=== PATIENT | female | born 2000 | race Caucasian/White ===

== ENCOUNTER 2023-06-18 09:05 | Emergency (ER) | payer BC, SELFPAY ==
[2023-06-18 09:10] VITALS: BP 132/70; PULSE 72; RESP 16; TEMP 36.8; O2SAT 98; BMI 16.7
--- NOTE | 2023-06-18 09:18 | DI.RAD.S_ITS ---
PROCEDURE: XR ANKLE RT MIN 3V INDICATIONS: stepped in a hole, felt pop TECHNIQUE: 3 views of the ankle were acquired. COMPARISON: None. FINDINGS: Bones: Minimally displaced transverse fracture of the distal fibula. No tibial fracture is seen. No widening of the tibiotalar joint space. No suspicious bony lesions. Soft tissues: Soft tissue edema is seen over the lateral malleolus. IMPRESSION: Minimally displaced transverse fracture of the distal fibula. Approved by: Siddharth Uribe M.D. on 06/18/2023 at 10:00
--- NOTE | 2023-06-18 09:32 | ED_ITS ---
HPI - Extremity Injury (Lower) General Chief Complaint: Extremity Injury, Lower Stated Complaint: stepped in hole heard pop in ankle needs eval Time Seen by Provider: 06/18/23 09:14 Source: patient Mode of arrival: Ambulatory History of Present Illness HPI Narrative: Patient is a 23-year-old healthy female who presents today with right ankle pain. She reports that last night around 5:00 p.m. she stepped in a hole and twisted. She heard a pop. Unable to weight bear. No other injury. She has been using crutches Keenan wrap. Ibuprofen seems to have helped with pain. Related Data Allergies Allergy/AdvReac Type Severity Reaction Status Date / Time latex Allergy Verified 06/18/23 09:19 Patient History Social History Smoking Status: Never smoker Smoking Status: Never smoker Substance Use Type: does not use Exam Initial Vital Signs Initial Vital Signs: Vital Signs Temperature 98.2 F 06/18/23 09:10 Pulse Rate 72 06/18/23 09:10 Respiratory Rate 16 06/18/23 09:10 Blood Pressure 132/70 06/18/23 09:10 Pulse Oximetry 98 06/18/23 09:10 Oxygen Delivery Method Room Air 06/18/23 09:10 GENERAL: Well-appearing, well-nourished and in no acute distress. CARDIOVASCULAR: peripheral pulses in tact, cap refill <2 sec RESPIRATORY: No respiratory distress, speaks in full sentences without difficulty EXTREMITIES: Normal range of motion, no clubbing or edema. Neurovascularly intact Right lower extremity swelling laterally distal pedal pulse intact Achilles intact knee stable NEUROLOGICAL: Cranial nerves II through XII grossly intact. Normal gait and speech. SKIN: Warm, dry, no petechiae, no rashes or lesions. Course Orders Ordered: ED Orders 06/18/23 09:18 XR ankle RT min 3V Stat Vital Signs Vital signs: Vital Signs - 8 hr 06/18/23 09:10 Temperature 98.2 F Pulse Rate 72 Respiratory Rate 16 Blood Pressure 132/70 Pulse Oximetry 98 Oxygen Delivery Method Room Air MDM - Extremity Injury (Lower) Imaging Data Extremity x-ray #1: My Impression: Transverse distal fibular fracture without significant displacement Radiologist's Impression: PROCEDURE: XR ANKLE RT MIN 3V INDICATIONS: stepped in a hole, felt pop TECHNIQUE: 3 views of the ankle were acquired. COMPARISON: None. FINDINGS: Bones: Minimally displaced transverse fracture of the distal fibula. No tibial fracture is seen. No widening of the tibiotalar joint space. No suspicious bony lesions. Soft tissues: Soft tissue edema is seen over the lateral malleolus. IMPRESSION: Minimally displaced transverse fracture of the distal fibula. Approved by: Siddharth Uribe M.D. on 06/18/2023 at 10:00 [facility] Narrative Medical decision making narrative: Patient healthy 23-year-old female who presents with right ankle pain after injury last night. X-ray has been reviewed by myself distal fibular fracture without significant displacement or angulation. Fracture is closed. She is placed in a walking boot she lives in [place] is actually an bi technical lead. She has given a disc of her x-ray and instructed to follow-up with PCP. Discharge Plan Departure Patient Disposition: Home Clinical Impression: Fracture of distal end of fibula Instructions: Ankle Fracture Activity Restrictions/Additional Instructions: *You have been diagnosed with right ankle fracture *What to do: At this time keep boot on at all times may weightbear as tolerated. Use crutches as needed. Please follow-up with PCP. I expect about 8 weeks for healing Keep elevated and ice 20-30 minutes at a time *Continue to take medications as directed Tylenol 1000 mg every 6 hours if needed for [id number] pain Ibuprofen 600 mg every 6 hours if needed for [id number] pain *Follow up with your primary care provider in 2-3 days or call [phone] *Return to ER if you should have increasing pain swelling numbness tingling or any new, worsening or concerning symptoms Stand Alone Forms: Patient Portal/API
--- NOTE | 2023-06-18 09:32 | PC.NURSE ---
[place] Pt states she has been treating her pain with ibuprofen, rest, and ice. Pt states pain continues so she came in to be evaluated.
== END 2023-06-18 10:02 | disposition home or self-care (01) ==
PROVIDERS: Emergency Provider Emergency Medicine
DX: S82.831A Other fracture of upper and lower end of right fibula, initial encounter for closed fracture (principal); X50.1XXA Overexertion from prolonged static or awkward postures, initial encounter
CPT/HCPCS: 29580; 73610; 99283